=== PATIENT | male | born 1975 | race Caucasian/White ===

== ENCOUNTER 2025-02-11 08:00 | Emergency (ER) | payer BC, OTHER ==
[2025-02-11 08:40] LABS: BASOPHILS PERCENT AUTO 0.9 % (0.0-1.0); EOSINOPHILS PERCENT AUTO 2.8 % (1.0-3.0); LYMPHOCYTES PERCENT AUTO 35.7 % (20.5-50.1); MONOCYTES PERCENT AUTO 10.4 % (2-8); NEUTROPHILS PERCENT AUTO 50.2 % (42.2-75.2); PLATELET COUNT,PLT 317 10^3/uL (150-450); RED BLOOD CELL COUNT 5.29 10^6/uL (4.6-6.2); WHITE BLOOD CELL COUNT,WBC 8.9 10^3/uL (5.0-10.0)
[2025-02-11 09:00] LABS: A/G RATIO 1.1; ALANINE AMINOTRANSFERASE,ALT 54 U/L (16-63); ASPARTATE AMNIOTRANSFERASE,AST 19 U/L (15-37); BILIRUBIN TOTAL 0.8 mg/dL (0.2-1.0); BLOOD UREA NITROGEN,BUN 19 mg/dL (7-18); CARBON DIOXIDE,CO2 24 mmol/L (21-32); CHLORIDE,CL 98 mmol/L (98-107); CREATININE 0.65 mg/dL (0.70-1.30); EST CRCL DRUG DOSING (CG) 143.50 mL/min; GLUCOSE RANDOM 170 mg/dL (70-99); POTASSIUM,K 3.8 mmol/L (3.5-5.1); PROTEIN TOTAL,TP 8.1 g/dL (6.4-8.2); SODIUM,NA 132 mmol/L (136-145)
[2025-02-11 09:02] LABS: ESTIMATED GFR 116 mL/min (>=60)
[2025-02-11 09:03] LABS: LACTIC ACID 0.8 mmol/L (0.4-2.0)
== END 2025-02-11 09:00 | disposition home or self-care (01) ==
LOC: DL.ED 08:00
DX: I87.2 Venous insufficiency (chronic) (peripheral) (principal); L03.116 Cellulitis of left lower limb; I10 Essential (primary) hypertension; E11.9 Type 2 diabetes mellitus without complications; E66.9 Obesity, unspecified; Z68.43 Body mass index [BMI] 50.0-59.9, adult
CPT/HCPCS: 36415; 80053; 83036; 83605; 84145; 85025; 99283

== ENCOUNTER 2025-02-12 16:21 | Inpatient (IN) | payer BC, OTHER ==
[2025-02-12] MEDS ORDERED: Metoprolol Tartrate 5 MG/5 ML SDV IVPUSH PRN (18:13)
[2025-02-12] MEDS ORDERED: hydrALAZINE 20 MG/ML SDV IVPUSH PRN (18:13)
[2025-02-12] MEDS ORDERED: Acetaminophen/oxyCODONE 325-5 MG Tab PO PRN (18:14)
[2025-02-12] MEDS ORDERED: Ondansetron 4 MG/2 ML SDV IVPUSH PRN (18:14)
[2025-02-12] MEDS ORDERED: Sennosides/Docusate Sodium 50-8.6 MG Tab PO PRN (18:14)
[2025-02-12] MEDS ORDERED: Magnesium Hydroxide 400 MG/5 ML Susp 30 ML Cup PO PRN (18:14)
[2025-02-12] MEDS ORDERED: Sodium Chloride 0.9% 10 ML Syringe FLUSH PRN (18:14)
[2025-02-12 19:04] LABS: BASOPHILS PERCENT AUTO 1.1 % (0.0-1.0); EOSINOPHILS PERCENT AUTO 2.7 % (1.0-3.0); LYMPHOCYTES PERCENT AUTO 36.4 % (20.5-50.1); MONOCYTES PERCENT AUTO 8.7 % (2-8); NEUTROPHILS PERCENT AUTO 51.1 % (42.2-75.2); PLATELET COUNT,PLT 307 10^3/uL (150-450); RED BLOOD CELL COUNT 5.10 10^6/uL (4.6-6.2); WHITE BLOOD CELL COUNT,WBC 9.2 10^3/uL (5.0-10.0)
[2025-02-12 19:22] LABS: A/G RATIO 1.0; ALANINE AMINOTRANSFERASE,ALT 50 U/L (16-63); ASPARTATE AMNIOTRANSFERASE,AST 20 U/L (15-37); BILIRUBIN TOTAL 0.8 mg/dL (0.2-1.0); BLOOD UREA NITROGEN,BUN 13 mg/dL (7-18); CARBON DIOXIDE,CO2 28 mmol/L (21-32); CHLORIDE,CL 100 mmol/L (98-107); CREATININE 0.99 mg/dL (0.70-1.30); EST CRCL DRUG DOSING (CG) 100.16 mL/min; ESTIMATED GFR 94 mL/min (>=60); GLUCOSE RANDOM 208 mg/dL (70-99); POTASSIUM,K 4.4 mmol/L (3.5-5.1); PROTEIN TOTAL,TP 7.9 g/dL (6.4-8.2); SODIUM,NA 136 mmol/L (136-145)
[2025-02-12] MEDS ORDERED: Pharmacy Consult Order SCH (19:30)
[2025-02-12] MEDS: Sodium Chloride 0.9% 10 ML Syringe FLUSH SCH (22:13)
[2025-02-13 06:23] LABS: PLATELET COUNT,PLT 274.0 10^3/uL (150-450); RED BLOOD CELL COUNT 5.03 10^6/uL (4.6-6.2); WHITE BLOOD CELL COUNT,WBC 6.3 10^3/uL (5.0-10.0)
[2025-02-13 06:41] LABS: A/G RATIO 1.1; ALANINE AMINOTRANSFERASE,ALT 52 U/L (16-63); ASPARTATE AMNIOTRANSFERASE,AST 25 U/L (15-37); BILIRUBIN TOTAL 1.0 mg/dL (0.2-1.0); BLOOD UREA NITROGEN,BUN 14 mg/dL (7-18); CARBON DIOXIDE,CO2 30 mmol/L (21-32); CHLORIDE,CL 99 mmol/L (98-107); CREATININE 0.83 mg/dL (0.70-1.30); EST CRCL DRUG DOSING (CG) 119.46 mL/min; GLUCOSE RANDOM 140 mg/dL (70-99); POTASSIUM,K 4.6 mmol/L (3.5-5.1); PROTEIN TOTAL,TP 7.8 g/dL (6.4-8.2); SODIUM,NA 137 mmol/L (136-145)
[2025-02-13 06:44] LABS: ESTIMATED GFR 108 mL/min (>=60)
[2025-02-13] MEDS: Saccharomyces Boulardii (Probiotic) 250 MG Cap PO SCH (09:29)
[2025-02-13] MEDS: VANCOmycin 1.5 GM/300 ML 1.5 GM in Premix Bag 1 BAG IV SCH ×2 (10:27→20:09)
[2025-02-13] MEDS: Furosemide 20 MG/2 ML VIAL IVPUSH ONE (14:31)
[2025-02-14 06:08] LABS: BASOPHILS PERCENT AUTO 0.8 % (0.0-1.0); EOSINOPHILS PERCENT AUTO 3.3 % (1.0-3.0); LYMPHOCYTES PERCENT AUTO 27.9 % (20.5-50.1); MONOCYTES PERCENT AUTO 12.3 % (2-8); NEUTROPHILS PERCENT AUTO 55.7 % (42.2-75.2); PLATELET COUNT,PLT 264 10^3/uL (150-450); RED BLOOD CELL COUNT 5.10 10^6/uL (4.6-6.2); WHITE BLOOD CELL COUNT,WBC 6.3 10^3/uL (5.0-10.0)
[2025-02-14 06:28] LABS: BLOOD UREA NITROGEN,BUN 15.0 mg/dL (7-18); CARBON DIOXIDE,CO2 29.0 mmol/L (21-32); CHLORIDE,CL 99.0 mmol/L (98-107); CREATININE 0.8 mg/dL (0.70-1.30); EST CRCL DRUG DOSING (CG) 123.94 mL/min; GLUCOSE RANDOM 126.0 mg/dL (70-99); POTASSIUM,K 4.3 mmol/L (3.5-5.1); SODIUM,NA 135.0 mmol/L (136-145); VANCOMYCIN RANDOM 9.8 ug/mL (No Normal Range)
[2025-02-14 06:29] LABS: ESTIMATED GFR 109.0 mL/min (>=60)
== END 2025-02-14 12:02 | disposition home or self-care (01) | DRG 383 ==
LOC: DL.MS 18:38
PROVIDERS: ADMIT Internal Medicine; ATTEND Internal Medicine
DX: L03.116 Cellulitis of left lower limb (principal); I10 Essential (primary) hypertension; E78.5 Hyperlipidemia, unspecified; G47.33 Obstructive sleep apnea (adult) (pediatric); I87.2 Venous insufficiency (chronic) (peripheral); E11.65 Type 2 diabetes mellitus with hyperglycemia; E66.813 Obesity, class 3; Z68.43 Body mass index [BMI] 50.0-59.9, adult; R74.8 Abnormal levels of other serum enzymes; Z79.899 Other long term (current) drug therapy; Z79.84 Long term (current) use of oral hypoglycemic drugs
CPT/HCPCS: 36415; 80048; 80053; 80202; 83735; 85025; 85027; 85379; 86140; 93971; 99223; 99232; 99239; A9270-GY; J1171; J1650; J1938; J2543; J3374; J3375; J7050